=== PATIENT | female | born 1990 | race Caucasian/White ===

== ENCOUNTER 2017-07-09 07:58 | Emergency (ER) | payer BC ==
[2017-07-09] MEDS ORDERED: Sodium Chloride 0.9% 10 ML Syringe FLUSH PRN (08:18)
[2017-07-09] MEDS ORDERED: HYDROmorphone 1 MG/ML Syringe IVPUSH ONE (08:18)
[2017-07-09] MEDS ORDERED: Metoclopramide 10 MG/2 ML SDV IVPUSH ONE (08:19)
--- NOTE | 2017-07-09 08:23 | EDM.PDOC ---
ED HPI GENERAL MEDICAL PROBLEM - General Chief Complaint: Lower Extremity Injury/Pain Stated Complaint: LEFT ANKLE INJURY Time Seen by Provider: 07/09/17 08:10 Source of Information: Reports: Patient History Limitations: Reports: No Limitations - History of Present Illness INITIAL COMMENTS - FREE TEXT/NARRATIVE: 26-year-old female presents to the ED after she slipped and fell walking outside her home this morning. She's on clear exactly what happened but it sounds like more of an inversion spiral twist injury to her left ankle that caused her to fall to the ground. She can't move her she fell on top of her left ankle or not. When she got up she was unable to weight-bear the left ankle gave out completely on her causing her to fall one more time. She denies hitting her head or hurting her neck ribs or lower back. She denies any injuries to her wrists or her other leg. Pain is localized to the left lateral ankle. No previous fractures to this ankle. Onset: Today Onset Date: 07/09/17 Onset Time: 19:45 Duration: Minutes: Location: Reports: Lower Extremity, Left Quality: Reports: Ache, Throbbing Severity: Moderate Improves with: Reports: Rest Worsens with: Reports: Movement Associated Symptoms: Reports: No Other Symptoms. 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) Left Ankle Pain Score (Numeric/FACES): 9 - Related Data Allergies Allergy/AdvReac Type Severity Reaction Status Date / Time amoxicillin Allergy Hives Verified 07/09/17 08:14 [facility] Allergy Hives Verified 07/09/17 08:14 Penicillins Allergy Hives Verified 07/09/17 08:14 sulfamethoxazole Allergy Hives Verified 07/09/17 08:14 [From Septra] trimethoprim [From Septra] Allergy Hives Verified 07/09/17 08:14 Home Meds: Home Meds oxyCODONE HCl/Acetaminophen [Percocet 5-325 mg Tablet] 1 - 2 each PO Q4H PRN # 24 tablet 07/09/17 [Rx] Past Medical History HEENT History: Reports: Otitis Media Social & Family History - Living Situation & Occupation Living situation: Reports: Review of Systems - Review of Systems Review Of Systems: See Below Constitutional: Reports: No Symptoms Eyes: Reports: No Symptoms Ears: Reports: No Symptoms Nose: Reports: No Symptoms Mouth/Throat: Reports: No Symptoms Respiratory: Reports: No Symptoms Cardiovascular: Reports: No Symptoms GI/Abdominal: Reports: No Symptoms Genitourinary: Reports: No Symptoms Musculoskeletal: Reports: Leg Pain Skin: Reports: No Symptoms (See history of present illness) Neurological: Reports: No Symptoms Psychiatric: Reports: No Symptoms ED EXAM, GENERAL - Physical Exam Exam: See Below Exam Limited By: No Limitations General Appearance: Alert, WD/WN, Moderate Distress (In obvious discomfort and pain.) Eye Exam: Bilateral Eye: Normal Inspection Head: Atraumatic, Normocephalic Neck: Normal Inspection, Supple, Non-Tender, Full Range of Motion. No: Lymphadenopathy (L), Lymphadenopathy (R) Respiratory/Chest: No Respiratory Distress, Lungs Clear, Normal Breath Sounds, No Accessory Muscle Use Cardiovascular: Normal Peripheral Pulses, Regular Rate, Rhythm, No Edema, No Gallop, No Murmur Peripheral Pulses: 2+: Posterior Tibial (L), Posterior Tibial (R), Dorsalis Pedis (L), Dorsalis Pedis (R) Back Exam: Normal Inspection, Full Range of Motion. No: CVA Tenderness (L), CVA Tenderness (R) Extremities: Other (No problems identified with the upper extremities or the right lower extremity. Left lower extremity shows deformity of the distal fibula. The deltoid ligament appears to be intact medially. No pain on compression of the foot bones. A noncompression of the proximal fibula noted.) Neurological: Alert, Oriented, CN II-XII Intact, Normal Cognition Psychiatric: Normal Affect, Normal Mood Skin Exam: Warm, Dry, Intact, Normal Color, No Rash ED TRAUMA EXTREMITY PROCEDURES - Splinting Left Lower Extremity Splint Site: Below-knee left leg Pre-Procedure NV Status: Normal Post-Procedure NV Status: Normal Splint Material: Fiberglass (Posterior slab and stirrup splint) Splint Design: Stirrup, Posterior Applied & Form Fitted By: Provider Provider Post-Splint Application NV Check: NV Status Normal Complications: No Course - Vital Signs Last Recorded V/S: Last Vital Signs Temp 36.7 C 07/09/17 08:08 Pulse 76 07/09/17 08:08 Resp 18 07/09/17 08:08 BP 132/77 07/09/17 08:08 Pulse Ox 98 07/09/17 08:08 - Orders/Labs/Meds Orders: Active Orders 24 hr Category Date Time Status Peripheral IV Care [RC] . DIRECTED Care 07/09/17 08:18 Active Sodium Chloride 0.9% [Saline Flush] Med 07/09/17 08:18 Active 10 ml FLUSH ASDIRECTED PRN Peripheral IV Insertion Adult [OM.PC] Stat Oth 07/09/17 08:18 Ordered Medication Orders Sodium Chloride (Saline Flush) 10 ml FLUSH ASDIRECTED PRN PRN Reason: Keep Vein Open Last Admin: 07/09/17 08:37 Dose: 10 ml Meds: Medications Generic Name Dose Route Start Last Admin Trade Name Freq PRN Reason Stop Dose Admin Sodium Chloride 10 ml 07/09/17 08:18 07/09/17 08:37 Saline Flush FLUSH 10 ml ASDIRECTED PRN Administration Keep Vein Open Discontinued Medications Generic Name Dose Route Start Last Admin Trade Name Freq PRN Reason Stop Dose Admin Hydromorphone HCl 0.5 mg 07/09/17 08:18 07/09/17 08:36 Dilaudid IVPUSH 07/09/17 08:19 0.5 mg ONETIME ONE Administration Hydromorphone HCl Confirm 07/09/17 08:33 07/09/17 08:35 Dilaudid Administered 07/09/17 08:34 Not Given Dose 0.5 mg .ROUTE .STK-MED ONE Metoclopramide HCl 10 mg 07/09/17 08:19 07/09/17 08:34 Reglan IVPUSH 07/09/17 08:20 10 mg ONETIME ONE Administration - Radiology Interpretation Free Text/Narrative:: 26-year-old female slipped and fell on the ice this morning outside her home. When she attempted to get up and put weight on the left ankle gave out on her again. Clinically she has fractured her distal fibula. No other injuries are identified. Plan: Saline lock. Dilaudid 1 mg IV for pain relief with Reglan 10 mg IV. X-rays of tib-fib and left ankle to be obtained - Re-Assessments/Exams Free Text/Narrative Re-Assessment/Exam: 07/09/17 08:52 x-rays of the left ankle and tib-fib reveal a spiral fracture of the distal fibula that is intra-articular. However the fibula is lined up very well anatomically. Patient will be placed in a Ortho-Glass posterior and stirrup splint. Will make arrangements for follow-up with Dr. Cesar's office next week. Current pain is down to 2 out of 10 after intravenous Dilaudid and Reglan. She will be given a prescription for Percocet 5/3/25 milligram tabs 24 tabs one or 2 every 4-6 hours for pain relief over the next 3-4 days. Ideally she will build to follow-up with Dr. Cesar early next week. 07/09/17 10:30: Patient is placed in a posterior slab Ortho-Glass splint with stirrup splint to maintain position of the fractured fragments. Left a message with Dr. Cesar's office and they will contact her next week with an appointment. Departure - Departure Time of Disposition: 10:45 Disposition: Home, Self-Care 01 Condition: Fair Clinical Impression: Fracture of fibula - Discharge Information Prescriptions: oxyCODONE HCl/Acetaminophen [Percocet 5-325 mg Tablet] 1 - 2 each PO Q4H PRN # 24 tablet PRN Reason: pain relief. Instructions: Cast or Splint Care, Adult, [id number] Referrals: Sri La MD [Primary Care Provider] - Forms: ED Department Discharge, ED Return to Work/School Form Additional Instructions: Evaluation in the emergency room this morning in regards to slip on the ice outside her home this morning. This resulted in an inversion injury to her left ankle with x-ray evidence of a spiral fracture of her distal fibula bone. The fracture is intra-articular and may require orthopedic surgical management. You' re immobilized in a Ortho-Glass splint both posterior slab and stirrup splint to maintain fracture in his current position. You are to be nonweightbearing crutch walking only I told otherwise by Dr. Cesar. Elevate the leg is much as possible for the next 2 days. Apply ice pack over the splint for one half hour out of every 4 hours while awake today and tomorrow. Pain medication to be Motrin 600 mg every 6 hours as needed. Percocet 5/325 milligram tabs one or 2 every 4-6 hours for pain relief not controlled by Motrin alone. We have left a message with Dr. Cesar's office and they will contact to either tomorrow or early next week for an appointment time with him. - My Orders Last 24 Hours: My Active Orders 07/09/17 08:18 Peripheral IV Care [RC] . DIRECTED Sodium Chloride 0.9% [Saline Flush] 10 ml FLUSH ASDIRECTED PRN Peripheral IV Insertion Adult [OM.PC] Stat - Assessment/Plan Last 24 Hours: My Active Orders 07/09/17 08:18 Peripheral IV Care [RC] . DIRECTED Sodium Chloride 0.9% [Saline Flush] 10 ml FLUSH ASDIRECTED PRN Peripheral IV Insertion Adult [OM.PC] Stat
[2017-07-09] MEDS ORDERED: HYDROmorphone 0.5 MG/0.5 ML SYRINGE ONE (08:33)
--- NOTE | 2017-07-09 09:13 | CR ---
Left tibia and fibula: AP and lateral views of the left tibia and fibula were obtained. Lateral malleolar fracture and small posterior malleolar fracture is again noted. No proximal fracture is seen within the tibia or fibula. Impression: 1. Ankle fracture is again noted. No proximal abnormality is seen on left tibia and fibula. Diagnostic code #3
--- NOTE | 2017-07-09 10:25 | CR ---
Left ankle: Four views of the left ankle were obtained. Comparison: No prior ankle study. Fracture is identified within the distal fibula through the lateral malleolus. Fracture is slightly comminuted. Minimal displacement is seen by about 1-2 mm. Small fracture involving the posterior malleolus is noted. Medial malleolus appears intact. There appears to be a small chip fracture off the medial aspect of the talar dome. Soft tissue swelling is present. Small spur is noted off the posterior calcaneus at the attachment to the Achilles tendon. Impression: 1. Lateral malleolar fracture, very small posterior malleolar fracture. 2. Probable small chip fracture off the medial edge of the talar dome. 3. Soft tissue swelling. Diagnostic code #3
== END 2017-07-09 10:43 | disposition home or self-care (01) ==
LOC: JD.ED 07:58
DX: S82.62XA Displaced fracture of lateral malleolus of left fibula, initial encounter for closed fracture (principal); Z88.0 Allergy status to penicillin; Z88.1 Allergy status to other antibiotic agents; Z88.2 Allergy status to sulfonamides; Z88.8 Allergy status to other drugs, medicaments and biological substances; W00.0XXA Fall on same level due to ice and snow, initial encounter; Y92.009 Unspecified place in unspecified non-institutional (private) residence as the place of occurrence of the external cause
CPT/HCPCS: 29515; 73590; 73610; 96374; 96375; 99284; J1170; J2765; J7050

== ENCOUNTER 2020-02-21 20:54 | Emergency (ER) | payer BC ==
--- NOTE | 2020-02-21 22:48 | EDM.PDOC ---
ED HPI GENERAL MEDICAL PROBLEM - General Chief Complaint: Respiratory Problem Stated Complaint: COVID POSITIVE SOB Time Seen by Provider: 02/21/20 22:09 - History of Present Illness INITIAL COMMENTS - FREE TEXT/NARRATIVE: 29-year-old female presents the emergency room with transient shortness of breath. Last week patient was diagnosed with COVID at 1 of the community screening facilities. She is done okay with it and by enlarge she thought she was starting to improve. Today however she had an episode where she felt short of breath she checked her O2 saturation it was down around 85 and then it did gradually come back up she is 93 to 95% here in the emergency department. She denies any other worsening symptoms at this point. Patient does not have diabetes however she has polycystic ovarian disease takes metformin for this as well as spironolactone the patient has not experienced any chest pain with this illness thus far. - Related Data Allergies Allergy/AdvReac Type Severity Reaction Status Date / Time amoxicillin Allergy Hives Verified 02/21/20 21:08 cefaclor [From Ceclor] Allergy Hives Verified 02/21/20 21:08 erythromycin base Allergy Hives Verified 02/21/20 21:08 [From Erythrocin] Penicillins Allergy Hives Verified 02/21/20 21:08 Sulfa (Sulfonamide Allergy Hives Verified 02/21/20 21:08 Antibiotics) sulfamethoxazole Allergy Hives Verified 02/21/20 21:08 [From Septra] trimethoprim [From Septra] Allergy Hives Verified 02/21/20 21:08 Home Meds: Home Meds Spironolactone 1 tab PO DAILY 02/21/20 [History] metFORMIN [Glucophage] 2 tab PO DAILY 02/21/20 [History] Past Medical History HEENT History: Reports: Otitis Media Respiratory History: Reports: Asthma 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 Denies: Fever, Chills Respiratory: Reports: No Symptoms, Shortness of Breath (Transient this evening). Denies: Pleuritic Chest Pain Cardiovascular: Reports: No Symptoms. Denies: Chest Pain Endocrine: Reports: No Symptoms GI/Abdominal: Reports: No Symptoms Musculoskeletal: Reports: No Symptoms ED EXAM, GENERAL - Physical Exam Exam: See Below Exam Limited By: No Limitations General Appearance: Alert, No Apparent Distress Eye Exam: Bilateral Eye: Normal Inspection, PERRL Ears: Normal External Exam, Normal Canal, Hearing Grossly Normal, Normal TMs, Other (She has some scarring in the tympanic membranes she had problems with her ears as a child) Nose: Normal Inspection, Normal Mucosa Throat/Mouth: Normal Inspection, Normal Lips, Normal Teeth, Normal Gums, Normal Oropharynx, Normal Voice, No Airway Compromise Head: Atraumatic, Normocephalic Neck: Normal Inspection, Supple, Non-Tender, Full Range of Motion. No: Lymphadenopathy (L), Lymphadenopathy (R) Respiratory/Chest: No Respiratory Distress, Lungs Clear, Normal Breath Sounds Cardiovascular: Normal Peripheral Pulses, Regular Rate, Rhythm, No Edema GI/Abdominal: Normal Bowel Sounds, Soft, Non-Tender Back Exam: Normal Inspection, Full Range of Motion. No: CVA Tenderness (L), CVA Tenderness (R) Extremities: Normal Inspection, Normal Range of Motion, Non-Tender Neurological: Alert, Oriented, Normal Cognition Psychiatric: Normal Affect, Normal Mood Course - Vital Signs Last Recorded V/S: Last Vital Signs Temp 36.4 C 02/21/20 21:04 Pulse 87 02/21/20 22:06 Resp 36 H 02/21/20 21:04 BP 120/76 02/21/20 22:06 Pulse Ox 91 L 02/21/20 22:06 - Orders/Labs/Meds Orders: Active Orders 24 hr Category Date Time Status Chest 1V Frontal [CR] Stat Exams 02/21/20 23:16 Taken Labs: Laboratory Tests 02/21/20 02/21/20 02/21/20 Range/Units 22:58 22:58 22:58 WBC 4.07 (3.98-10.04) K/mm3 RBC 4.69 (3.98-5.22) M/mm3 Hgb 13.4 (11.2-15.7) gm/dl Hct 41.5 (34.1-44.9) % MCV 88.5 (79.4-94.8) fl MCH 28.6 (25.6-32.2) pg MCHC 32.3 (32.2-35.5) g/dl RDW Std Deviation 42.7 (36.4-46.3) fL Plt Count 286 (182-369) K/mm3 MPV 9.7 (9.4-12.3) fl Neutrophils % (Manual) 66 H (40-60) % Band Neutrophils % 0 (0-10) % Lymphocytes % (Manual) 24 (20-40) % Atypical Lymphs % 0 % Monocytes % (Manual) 10 (2-10) % Eosinophils % (Manual) 0 L (0.7-5.8) % Basophils % (Manual) 0 L (0.1-1.2) Platelet Estimate Adequate RBC Morph Comment Normal Sodium 140 (136-145) mEq/L Potassium 3.9 (3.5-5.1) mEq/L Chloride 101 (98-107) mEq/L Carbon Dioxide 30 (21-32) mEq/L Anion Gap 12.9 (5-15) BUN 7 (7-18) mg/dL Creatinine 1.0 (0.55-1.02) mg/dL Est Cr Clr Drug Dosing 74.02 mL/min Estimated GFR (MDRD) > 60 (>60) mL/min BUN/Creatinine Ratio 7.0 L (14-18) Glucose 108 H (74-106) mg/dL Calcium 9.0 (8.5-10.1) mg/dL Ferritin (8-252) ng/ml Total Bilirubin 0.4 (0.2-1.0) mg/dL AST 35 (15-37) U/L ALT 61 H (14-59) U/L Alkaline Phosphatase 51 (46-116) U/L Lactate Dehydrogenase 225 (81-234) U/L C-Reactive Protein 4.7 H* (<1.0) mg/dL NT-Pro-B Natriuret Pep 7 (0-125) pg/mL Total Protein 7.8 (6.4-8.2) g/dl Albumin 3.8 (3.4-5.0) g/dl Globulin 4.0 gm/dL Albumin/Globulin Ratio 1.0 (1-2) /29/20 Range/Units 22:58 WBC (3.98-10.04) K/mm3 RBC (3.98-5.22) M/mm3 Hgb (11.2-15.7) gm/dl Hct (34.1-44.9) % MCV (79.4-94.8) fl MCH (25.6-32.2) pg MCHC (32.2-35.5) g/dl RDW Std Deviation (36.4-46.3) fL Plt Count (182-369) K/mm3 MPV (9.4-12.3) fl Neutrophils % (Manual) (40-60) % Band Neutrophils % (0-10) % Lymphocytes % (Manual) (20-40) % Atypical Lymphs % % Monocytes % (Manual) (2-10) % Eosinophils % (Manual) (0.7-5.8) % Basophils % (Manual) (0.1-1.2) Platelet Estimate RBC Morph Comment Sodium (136-145) mEq/L Potassium (3.5-5.1) mEq/L Chloride (98-107) mEq/L Carbon Dioxide (21-32) mEq/L Anion Gap (5-15) BUN (7-18) mg/dL Creatinine (0.55-1.02) mg/dL Est Cr Clr Drug Dosing mL/min Estimated GFR (MDRD) (>60) mL/min BUN/Creatinine Ratio (14-18) Glucose (74-106) mg/dL Calcium (8.5-10.1) mg/dL Ferritin 256 H (8-252) ng/ml Total Bilirubin (0.2-1.0) mg/dL AST (15-37) U/L ALT (14-59) U/L Alkaline Phosphatase (46-116) U/L Lactate Dehydrogenase (81-234) U/L C-Reactive Protein (<1.0) mg/dL NT-Pro-B Natriuret Pep (0-125) pg/mL Total Protein (6.4-8.2) g/dl Albumin (3.4-5.0) g/dl Globulin gm/dL Albumin/Globulin Ratio (1-2) - Re-Assessments/Exams Free Text/Narrative Re-Assessment/Exam: 02/22/20 01:14 She has done well here in the emergency room her O2 saturation was 90 to 93% with her sleeping. Laboratory evaluation is alarming and that her abnormalities are consistent with COVID. Her chest x-ray looks surprisingly almost normal no appreciable infiltrate seen however it is suboptimal inspiration. I discussed the findings with the patient she would like to go home and get some sleep. Departure - Departure Time of Disposition: 01:15 Disposition: Home, Self-Care 01 Clinical Impression: COVID-19 - Discharge Information Referrals: PCP,None [Primary Care Provider] - Forms: ED Department Discharge Additional Instructions: Return to the emergency room with any questions problems or worsening symptoms. Continue the social isolation for a minimum of 2 weeks. You should be symptom- free not taking any medication for a minimum of 4 days before you go back out to community. Sepsis Event Note (ED) - Evaluation Sepsis Screening Result: Possible Sepsis Risk - Focused Exam Vital Signs: Vital Signs Temp Pulse Resp BP Pulse Ox 02/21/20 22:06 87 120/76 91 L 02/21/20 21:31 94 91 L 02/21/20 21:04 36.4 C 108 H 36 H 131/82 90 L - My Orders Last 24 Hours: My Active Orders 02/21/20 23:16 Chest 1V Frontal [CR] Stat - Assessment/Plan Last 24 Hours: My Active Orders 02/21/20 23:16 Chest 1V Frontal [CR] Stat
--- NOTE | 2020-04-03 09:30 | CR ---
PROCEDURE INFORMATION: Exam: XR Chest, 1 View Exam date and time: 02/21/2020 11:29 PM Age: 29 years old Clinical indication: Dyspnea TECHNIQUE: Imaging protocol: XR of the chest Views: 1 view. COMPARISON: No relevant prior studies available. FINDINGS: Lungs: Unremarkable. No consolidation. Pleural space: Unremarkable. No pleural effusion. No pneumothorax. Heart/Mediastinum: Unremarkable. No cardiomegaly. Bones/joints: Unremarkable. Other findings: Very poor inspiration effort. IMPRESSION: No acute findings. Thank you for allowing us to participate in the care of your patient. Dictated and Authenticated by: Raul Abel MD 04/02/2020 1:18 PM Central Time ([place] & [place]) [place]
== END 2020-02-22 01:32 | disposition home or self-care (01) ==
LOC: JD.ED 20:54
DX: U07.1 COVID-19 (principal); J45.909 Unspecified asthma, uncomplicated; E28.2 Polycystic ovarian syndrome; Z79.84 Long term (current) use of oral hypoglycemic drugs; Z79.899 Other long term (current) drug therapy; Z88.1 Allergy status to other antibiotic agents; Z88.0 Allergy status to penicillin; Z88.2 Allergy status to sulfonamides
CPT/HCPCS: 36415; 71045; 71045-26; 80053; 82728; 83615; 83880; 85007; 85027; 86140; 99282; 99285-25